=== PATIENT | female | born 1995 | race Caucasian/White ===

== ENCOUNTER 2018-07-19 16:44 | Emergency (ER) | payer MEDICAID ==
[~2018-07-19] VITALS: Wt 90.6 kg
--- NOTE | 2018-07-19 17:50 | ERD ---
ER Documentation Chief Complaint Chief Complaint UPPER ABD PAIN SINCE THIS MORNING. NO VAG BLEED. NO VOMITING. HPI 23-year-old female who is 19 weeks , G2, , last menstrual cycle of 03/15/2017 presents to the emergency department complaining of mid right-sided abdominal pain which began this morning. She states she feels a shooting sensation across her abdomen. She describes it as sharp and 3/10 in severity. Associated symptoms include diarrhea. She states "I am concerned about the baby". She denies any fevers, chills, nausea, vomiting, vaginal bleeding, vaginal discharge, lower abdominal pain, or other symptoms at this time. ROS All systems reviewed and are negative except as per history of present illness. Allergies Allergies: Coded Allergies: No Known Allergy (Unverified , 07/19/18) PMhx/Soc Medical and Surgical Hx: pt denies Medical Hx, pt denies Surgical Hx FmHx Family History: No diabetes Physical Exam Vitals Vital Signs Date Temp Pulse Resp B/P (MAP) Pulse Ox O2 O2 Flow FiO2 Time Delivery Rate 07/19/18 98.1 80 18 105/62 97 19:06 (76) 07/19/18 97.4 99 18 113/76 98 16:47 (88) Physical Exam Const: No acute distress Head: Atraumatic Eyes: Normal Conjunctiva ENT: Normal External Ears, Nose and Mouth. Neck: Full range of motion. No meningismus. Resp: Clear to auscultation bilaterally Cardio: Regular rate and rhythm, no murmurs Abd: Soft, non tender, non distended. Normal bowel sounds. No rebound tenderness or guarding. No McBurney's point tenderness. No suprapubic tendern ess on palpation. Skin: No petechiae or rashes Ext: No cyanosis, or edema Neur: Awake and alert Psych: Normal Mood and Affect Result Diagram: 07/19/18 1737 07/19/18 1737 Results 24 hrs Laboratory Tests Test 07/19/18 17:37 White Blood Count 12.3 10^3/ul Red Blood Count 4.05 10^6/ul Hemoglobin 12.8 g/dl Hematocrit 37.2 % Mean Corpuscular Volume 91.9 fl Mean Corpuscular Hemoglobin 31.6 pg Mean Corpuscular Hemoglobin Concent 34.4 g/dl Red Cell Distribution Width 12.8 % Platelet Count 348 10^3/UL Mean Platelet Volume 9.1 fl Immature Granulocytes % 0.600 % Neutrophils % 72.5 % Lymphocytes % 20.0 % Monocytes % 5.9 % Eosinophils % 0.6 % Basophils % 0.4 % Nucleated Red Blood Cells % 0.0 /100WBC Immature Granulocytes # 0.070 10^3/ul Neutrophils # 8.9 10^3/ul Lymphocytes # 2.5 10^3/ul Monocytes # 0.7 10^3/ul Eosinophils # 0.1 10^3/ul Basophils # 0.1 10^3/ul Nucleated Red Blood Cells # 0.0 10^3/ul Urine Color YELLOW Urine Clarity SLIGHTLY CLOUDY Urine pH 5.0 Urine Specific [place] 1.021 Urine Ketones TRACE mg/dL Urine Nitrite NEGATIVE mg/dL Urine Bilirubin NEGATIVE mg/dL Urine Urobilinogen NEGATIVE mg/dL Urine Leukocyte Esterase TRACE Cristiana/ul Urine Microscopic RBC 2 /HPF Urine Microscopic WBC 6 /HPF Urine Squamous Epithelial Cells FEW /HPF Urine Bacteria FEW /HPF Urine Mucus FEW /HPF Urine Hemoglobin NEGATIVE mg/dL Urine Glucose NEGATIVE mg/dL Urine Total Protein NEGATIVE mg/dl Sodium Level 138 mmol/L Potassium Level 3.9 mmol/L Chloride Level 108 mmol/L Carbon Dioxide Level 20 mmol/L Anion Gap 10 Blood Urea Nitrogen 8 mg/dl Creatinine 0.56 mg/dl Est Glomerular Filtrat Rate mL/min > 60 mL/min Glucose Level 90 mg/dl Calcium Level 9.2 mg/dl Total Bilirubin 0.3 mg/dl Direct Bilirubin 0.00 mg/dl Indirect Bilirubin 0.3 mg/dl Aspartate Amino Transf (AST/SGOT) 33 IU/L Alanine Aminotransferase (ALT/SGPT) 32 IU/L Alkaline Phosphatase 89 IU/L Total Protein 7.5 g/dl Albumin 3.7 g/dl Globulin 3.80 g/dl Albumin/Globulin Ratio 0.97 Lipase 117 U/L [place] [id number] Radiology Main Line: [phone] DIAGNOSTIC IMAGING REPORT Patient: MARGIE MARR : 1995 Age: 23 Sex: F MR #: [id number] DOS: 07/19/18 0000 Ordering MD: LESLY BRADLEY PA-C Location: [facility] Room/Bed: PROCEDURE: US OB. CLINICAL INDICATION: Pelvic pain TECHNIQUE: Multiple sonographic images of the pelvis were obtained. The images were reviewed on a PACS workstation. COMPARISON: No prior studies are available for comparison. FINDINGS: The cervix is closed with a length of 3.22 cm There is a single viable intrauterine gestation. Cardiac activity is present with 154 beats per minute. There is a variable presentation. Measurements were made in order to determine age. The results are as follows: BPD = 3.95 cm 18 weeks 0 days HC = 15.52 cm 18 weeks 3 days AC = 13.08 cm 18 weeks 4 days FL = 2.56 cm 17 weeks 5 days. Estimated gestational age of approximately 18 weeks 1 day. The estimated date of delivery is 12/19/2018. The EFW = 229.85 g 14.8% . The placenta is anterior grade 0.. There is a 1.2 x 0.6 cm hypoechoic area along the superior edge of the placenta which may represent a small area of abruption. This should be followed. There is a normal amount of amniotic fluid with an MVP = 5.5 cm. IMPRESSION: Single viable intrauterine gestation of approximately 18 weeks 1 day. The estimated date of delivery is 12/19/2018 1.2 x 0.6 cm hypoechoic retroplacental area along the superior margin of the placenta. This may represent a small abruption. Continued follow-up is recommended. Cervix is closed with a length of 3.2 cm .Eliecer Juels MD, MD Date Time Electronically viewed and signed by .Eliecer Jules MD, MD on 07/19/2018 18:19 .W/ CC: LESLY BRADLEY PA-C [phone] Procedures/MDM 23-year-old female presenting to the emergency department complaining of intermittent diarrhea and abdominal discomfort. Patient is reportedly 19 weeks . Pelvic ultrasound revealed a live intrauterine with heart tones present. There was an area that was concerning for a small placental abruption. I did discuss these findings with the on-call [facility] physician, Dr. Montesinos, who stated patient could be safely discharged home with strict return precautions and 24 to 48-hour follow-up with her [facility] physician. Patient was advised of this information and she demonstrated good understanding. Symptoms are likely secondary to gastroenteritis, likely viral e tiology. The patient was nontoxic and afebrile and well-appearing. She is improved during her ED course. I doubt bowel obstruction. I doubt acute surgical abdomen. No evidence to suggest ectopic , tubo-ovarian abscess, ovarian torsion, or other emergencies. Patient is stable and appro priate for discharge and further outpatient management. She was advised to return to the department immediately for any new or worsening or concerning symptoms. She is in agreement with the diagnosis, plan, need for follow-up, return precautions. Departure Diagnosis: Primary Impression: Abdominal pain complicating , antepartum Condition: Fair Additional Instructions: Follow up with your PCP within the next 1-3 days for a repeat evaluation. If you require a referral to a specialist, your Primary Care Provider may be able to provide this for you. In most patient cases, a referral is not required. If you have further questions regarding this matter, please ask your Primary Care Provider. Return the the emergency department immediately if symptoms worsen or change. If you have any questions regarding medications, ask your pharmacist or us before you leave. If any adverse reactions, occur while taking your medications, discontinue the treatment and return to the emergency department immediately. If any new or worsening symptoms, uncontrolled fevers, or other unexplained symptoms occur, return to the emergency department immediately. Take your medications as directed, and complete the entire course of treatment. LESLY BRADLEY PA-C Jul 19, 2018 17:50
[2018-07-19 19:06] VITALS: BP 105/62; PULSE 80; RESP 18
== END 2018-07-19 18:43 | disposition home or self-care (01) ==
LOC: FTE 16:44
DX: O26.892 Other specified pregnancy related conditions, second trimester (principal); R10.2 Pelvic and perineal pain; R10.11 Right upper quadrant pain; Z3A.18 18 weeks gestation of pregnancy
CPT/HCPCS: 36415; 76805; 80053; 81001; 83690; 85025